=== PATIENT | male | born 1980 | race Caucasian/White ===

== ENCOUNTER → 2017-07-18 07:21 | Outpatient (CLI) | payer MEDICARE, SELFPAY ==
--- NOTE | 2017-07-18 10:24 | NEURO ---
NCS and/or EMG Patient Report Ordering Doctor: Rosemarie Aviles DATE OF SERVICE: 07/18/17 This is a right upper extremity nerve conduction study and EMG performed on this 37-year-old male with a history of premature coronary artery disease but is otherwise healthy. He says that approximately 1 year ago he began to notice weakness and pain at the base of his right thumb which is intermittent and sudden, idiosyncratic. On examination he does have pain on palpation at the base of his right thumb which she says duplicates the symptoms. Right upper extremity sensory and motor nerve conduction study is performed demonstrating very mild prolongation of the median motor and sensory distal latencies with preservation of amplitudes and conduction velocities. The ulnar motor and sensory responses are normal. The median and ulnar F waves are normal. Right upper extremity needle electromyography is performed demonstrating normal insertional activity with absence of pathologic spontaneous activity in all muscles tested. Motor unit potential recruitment pattern and amplitude was normal in all muscles tested. Muscles evaluated included the abductor pollicis brevis, first dorsal interosseous, brachioradialis, biceps, triceps and deltoid muscles. Impression there is very mild carpal tunnel syndrome at the right wrist however this does not appear to be clinically significant. Otherwise a normal study.
== END ==
PROVIDERS: Family Provider Internal Medicine; PCP Internal Medicine; Visit Provider Internal Medicine
DX: M79.641 Pain in right hand (principal); M25.531 Pain in right wrist
CPT/HCPCS: 95886; 95910